=== PATIENT | male | born 1940 | race Caucasian/White ===

== ENCOUNTER → 2019-11-01 09:14 | Outpatient (CLI) | payer MEDICARE, SELFPAY ==
--- NOTE | 2019-11-01 09:18 | DI.RAD.S_ITS ---
PROCEDURE: XR LUMBAR SPINE MIN 4V INDICATIONS: Chronic progressive low back pain TECHNIQUE: 4 total views of the lumbar spine were acquired, including bilateral oblique views. COMPARISON: [facility], , L-SPINE WITHOUT CONTRAST, 11/16/2015, 6:53. FINDINGS: Bones: 5 nonrib-bearing vertebrae are present. No vertebral body compression fractures. No suspicious bony lesions. There is minimal anterolisthesis seen at L4-L5 level. Moderate disc space narrowing is seen at L2-L3, L3-L4, L4-L5, and L5-S1. Lower lumbar spine facet arthropathy is seen. Right hip arthroplasty hardware is partially seen. Soft tissues: Overlying bowel gas pattern is normal. No suspicious soft tissue calcifications. Atherosclerotic calcification is noted. Apparent prostate seed implants can be seen on one image. Oblique images: No pars defects. IMPRESSION: Degenerative changes are seen, which have progressed compared to 2016. Dictated by: Ervin Mitchell M.D. on 11/01/2019 at 8:59 Approved by: Ervin Mitchell M.D. on 11/01/2019 at 9:02
== END ==
PROVIDERS: PCP Family Medicine; Referring Provider Physical Medicine & Rehabilitation; Visit Provider Physical Medicine & Rehabilitation
DX: M54.41 Lumbago with sciatica, right side (principal); M54.42 Lumbago with sciatica, left side; M47.817 Spondylosis without myelopathy or radiculopathy, lumbosacral region; M48.061 Spinal stenosis, lumbar region without neurogenic claudication; M48.07 Spinal stenosis, lumbosacral region; G89.29 Other chronic pain
CPT/HCPCS: 72110

== ENCOUNTER → 2019-11-19 09:34 | Outpatient (CLI) | payer MEDICARE, SELFPAY ==
--- NOTE | 2019-11-19 09:39 | DI.MRI.S_ITS ---
PROCEDURE: MR LUMBAR SPINE WO CON INDICATIONS: Facet arthropathy TECHNIQUE: Noncontrast sagittal T1 spin echo and T2 fast echo, sagittal STIR, axial T1 and T2 fast spin echo through the lumbar spine. In cases with scoliosis, additional coronal T2 fast spin echo may be performed. COMPARISON: [facility], MR, L-SPINE WITHOUT CONTRAST, 11/16/2015, 6:53. FINDINGS: Image quality: Excellent. Alignment and Curvature: There is normal bony alignment. Bone Marrow: Marrow is of normal overall signal. No acute vertebral body compression fractures. Spinal Cord: Conus medullaris terminates at the L1 level. Visualized cord demonstrates normal signal and size. Paraspinous Soft Tissues: No paravertebral masses. T12-L1: No canal stenosis or foraminal stenosis. L1-L2: Mild interval progression. Facet and ligament hypertrophy. Mild canal stenosis. Mild bilateral foraminal stenosis. L2-L3: Interval increase in disc space loss. Diffuse moderate disc bulge. Facet and ligament hypertrophy. Progression of canal stenosis, moderate to severe. Moderate right foraminal narrowing with mild flattening deformity on the exiting right L2 nerve root. Mild to moderate left foraminal narrowing. L3-L4: Multifactorial canal stenosis is severe, secondary to disc bulge and facet and ligament hypertrophy. Disc bulges no longer eccentric to the left. Moderate right foraminal narrowing with mild flattening deformity on the exiting right L3 nerve root. Mild to moderate left foraminal narrowing. L4-L5: Progression of multifactorial severe canal stenosis secondary to diffuse disc bulge and exuberant facet and ligament hypertrophy. Mild to moderate bilateral foraminal narrowing. L5-S1: Stable findings. Disc bulge. Facet and ligament hypertrophy. Mild canal stenosis. Moderate bilateral foraminal stenosis with mild flattening deformity on the exiting bilateral L5 nerve roots. IMPRESSION: 1. Interval progression of multilevel canal stenosis, mild at L1-L2, moderate to severe L2-L3, severe at L3-L4 and L4-L5, and mild at L5-S1. 2. Multilevel foraminal narrowing as described above. 3. Multilevel facet arthropathy. Dictated by: Manpreet Garrido M.D. on 11/21/2019 at 8:53 Approved by: Manpreet Garrido M.D. on 11/21/2019 at 9:01
== END ==
PROVIDERS: PCP Family Medicine; Referring Provider Physical Medicine & Rehabilitation; Visit Provider Physical Medicine & Rehabilitation
DX: M47.816 Spondylosis without myelopathy or radiculopathy, lumbar region (principal); M48.061 Spinal stenosis, lumbar region without neurogenic claudication; M48.07 Spinal stenosis, lumbosacral region
CPT/HCPCS: 72148

== ENCOUNTER → 2020-10-22 12:36 | Outpatient (CLI) | payer MEDICARE, SELFPAY ==
[2020-10-22 13:53] LABS: INR 1.7 (0.9-1.3); Prothrombin Time 19.2 SECONDS (10.1-12.7)
[2020-10-22 13:56] LABS: PTT Partial Thromboplastin Tim 36 SECONDS (26.4-36.2)
[2020-10-22 14:58] LABS: Carbon Dioxide 25 mmol/L (22-32); Chloride 105 mmol/L (98-107); HEMOLYSIS < 15 (0-50); Potassium 4.7 mmol/L (3.4-5.1); Sodium 137 mmol/L (137-145)
== END ==
PROVIDERS: PCP Family Medicine; Referring Provider Podiatrist; Visit Provider Podiatrist
DX: Z01.818 Encounter for other preprocedural examination (principal); Z51.81 Encounter for therapeutic drug level monitoring
CPT/HCPCS: 36415; 80051; 85610; 85730; 93005

== ENCOUNTER → 2020-10-24 08:16 | Outpatient (CLI) | payer MEDICARE, SELFPAY ==
[2020-10-24 11:29] LABS: COVID19 -Nasal RAPID Negative (Negative)
== END ==
PROVIDERS: PCP Family Medicine; Visit Provider Physician Assistant
DX: Z01.812 Encounter for preprocedural laboratory examination (principal); Z20.822 Contact with and (suspected) exposure to COVID-19
CPT/HCPCS: 87635; C9803

== ENCOUNTER 2020-10-26 12:12 | Day surgery (SDC) | payer MEDICARE, SELFPAY ==
[2020-10-23 12:05] VITALS: BMI 29.2
[2020-10-26] VITALS (7 sets, daily range): BP systolic 115–161; BP diastolic 69–107; PULSE 62–95; RESP 12–18; TEMP 36.1–36.9; O2SAT 96–99; BMI 29.2
[2020-10-26] MEDS: LACTATED RINGERS 1,000 ML 100 ML IV (12:57)
--- NOTE | 2020-10-26 14:14 | PM.PREOP ---
Pre-operative Note COVID-19 COVID-19 status: Negative Result date/Date tested (Pos, Neg/Pending): 10/24/20 Interval Note History & Physical reviewed/Exam performed by Physician: Yes Changes to H&P: No
--- NOTE | 2020-10-26 14:14 | PM.OP.1 ---
Operative Date/Time/Diagnoses Date of procedure: 10/26/20 Time of procedure: 14:14 Pre-op diagnosis: Right foot non-healing wound Post-op diagnosis: same Procedure & Clinicians Procedure: Right fifth toe amputation Same procedure as scheduled: Yes Indications: Ongoing wound to the 4th interspace of the right foot mostly into the 5th toe. Conservative measures have failed to alleviate and heal this wound and he wished to have surgical intervention at this time. We spoke of the risks, potential complications, as well as expected outcomes. Consent was signed, no contraindications to the procedure at this time. Surgeon: Brynn Connors Click Yes if Unassisted: Yes Anesthesia Type: General Operative Notes Closure Type: primary Specimen(s): none sent Estimated Blood Loss (mL): 30 Blood products transfused: none Tourniquet time (min): 14 Procedure in detail: The patient was brought to the operating room and placed on the operating table in the supine position. The tourniquet was placed about the right ankle. Well padded, appropriately aligned. 10 cc of a 1 1 mixture of 0.5% Marcaine plain with 2% lidocaine plain was introduced after cleansing the area to the lateral foot in the area of the 4th and 5th toes. After induction of general anesthesia, the foot and ankle were prepped and draped in the usual aseptic manner. The tourniquet was inflated. After check of anesthesia, a full-thickness circumferential incision was made around the wound in the interspace of the 4th toe to 5th toe. Then an incision including this was made on the medial aspect of the 5th metatarsal phalangeal joint and up along the medial aspect of the 5th toe and then across laterally just proximal to the toenail. The 5th toe proximal intermediate and distal phalanges along with the associated tendons and ligaments components were carefully disassociation with the underlying vascular flap and passed from the field. This allowed the flap to then lay over the wound. The area was irrigated with copious amounts normal sterile saline and the tourniquet was deflated, a prompt hyperemic response was seen to the foot. All bleeders were cauterized as necessary. Revision of the skin flap to allow for appropriate coverage was performed. The flap of showed good vascular is a sargent. Subcutaneous closure was carefully performed using 4-0 Vicryl and skin closure using 3-0 nylon. Care was taken to verify that there were no real significant tense areas along the closure. The area was dressed with a sterile lightly compressive dressing. Complications: none Post-operative Condition: stable Disposition: PACU Plan for aftercare: Following a period of postoperative monitoring, the patient will be discharged to home on written and oral postoperative instructions including keeping the dressing dry and intact, no weightbearing to the foot, no ice to the foot, elevating the foot when seated home. DVT prevention techniques have been reviewed. For the 1st postoperative visit the dressing will be changed and close to the 3rd postoperative week we will likely remove the sutures.
[2020-10-26] MEDS: CEFAZOLIN 1 GM VIAL 2 GM IV (14:39)
--- NOTE | 2020-10-26 14:57 | SUR.OPER ---
Supine on padded OR bed, head on pillow, arms secured on padded arm boards at <90 degrees abduction, legs uncrossed, safety belt at thigh, tape over blanket over left lower leg, gel pad under left heel. Gel bump under right hip and rolled blankets under/against right lateral thigh. Right leg in control of the surgeon.
[2020-10-26] MEDS: LIDOCAINE 2% INJ MDV 20 ML INJ (15:02)
[2020-10-26] MEDS: BUPIVACAINE 0.5% (PF) VIAL 30 ML INJ (15:03)
== END 2020-10-26 16:32 | disposition home or self-care (01) ==
LOC: OR 12:14
PROVIDERS: PCP Family Medicine; Referring Provider Podiatrist; Visit Provider Podiatrist
PROC: (CPT 28820; principal; 2020-10-26 14:15)
DX: S91.301A Unspecified open wound, right foot, initial encounter (principal); M20.41 Other hammer toe(s) (acquired), right foot; M79.671 Pain in right foot; I10 Essential (primary) hypertension; E78.5 Hyperlipidemia, unspecified; M19.90 Unspecified osteoarthritis, unspecified site
CPT/HCPCS: 28820; 85610; J0690; J2704; J3010

== ENCOUNTER → 2021-10-02 09:30 | Outpatient (CLI) | payer MEDICARE, SELFPAY ==
--- NOTE | 2021-10-02 | DI.MRI.S_ITS ---
PROCEDURE: MR ANKLE RT WO CON INDICATIONS: Peroneal tendinitis, right leg TECHNIQUE: Noncontrast sagittal T1 spin echo and T2 fast spin echo with fat saturation, axial proton density fast spin echo and T2 fast spin echo with fat saturation, coronal T1 spin echo and T2 fast spin echo with fat saturation through the ankle/hindfoot. COMPARISON: [facility], CR, XR ANKLE 3+ VIEWS RIGHT, 09/12/2021, 14:14. FINDINGS: Image quality: Excellent. Bones and joints: Minimal fracture of the anterior, plantar surface of the calcaneus (5-9). Adjacent T2 hyperintense/T1 hypointense signal is seen, compatible with contusion. No osteochondral injuries of the talar dome. No pathologic joint effusions. Small focus of subchondral edema in the medial, inferior aspect of the talus. Dorsal calcaneal enthesophyte. Medial structures: The posterior tibialis, flexor digitorum longus, and flexor hallucis longus tendons are intact. Small amount of fluid surrounds the flexor digitorum longus and distal aspect of the flexor hallucis longus, concerning for tenosynovitis. The posterior tibial neurovascular bundle appears normal within the tarsal tunnel, without extrinsic mass effect. The deltoid and spring ligaments appear intact. Lateral structures: The anterior talofibular, calcaneofibular, and posterior talofibular ligaments appear intact. More superiorly, the anterior and posterior tibiofibular ligaments appear intact. The tibiofibular syndesmosis is normal in width at 2 mm or less. Split tear of the peroneal brevis at the level of the calcaneus. Thickening with partial tear of the peroneal longus tendon. The sinus tarsi demonstrates normal fatty signal, without edema, fibrosis, or cyst formation. Visualized sinus tarsi components (cervical ligament, interosseous talocalcaneal ligament, roots of the inferior extensor retinaculum) appear normal. Anterior structures: The tibialis anterior, extensor hallucis longus, and extensor digitorum longus tendons appear intact. The dorsal talonavicular ligament appears intact. Posterior and plantar structures: Achilles tendon is intact. Mild reticulated T2 hyperintense signal within Kager's fat. Medial and lateral bands of the plantar fascia are of normal thickness. No abductor digiti quinti muscle atrophy to suggest Potts neuropathy. IMPRESSION: 1. Minimal fracture of the anterior, plantar surface of the calcaneus. 2. Tenosynovitis of the flexor digitorum longus and flexor hallucis longus. 3. Split tear of the peroneal brevis at the level of the calcaneus. 4. Tendinopathy with partial tear of the peroneal longus tendon. 5. Mild edema within Kager's fat, which is nonspecific. 1. Dictated by: Kwaku Bishop M.D. on 10/02/2021 at 13:00 Approved by: Kwaku Bishop M.D. on 10/02/2021 at 13:12
== END ==
PROVIDERS: PCP Family Medicine; Referring Provider Podiatrist; Visit Provider Podiatrist
DX: M76.71 Peroneal tendinitis, right leg (principal); M65.871 Other synovitis and tenosynovitis, right ankle and foot; S96.811A Strain of other specified muscles and tendons at ankle and foot level, right foot, initial encounter
CPT/HCPCS: 73721

== ENCOUNTER → 2023-02-27 13:32 | Outpatient (CLI) | payer MEDICARE, SELFPAY ==
--- NOTE | 2023-02-27 | DI.ECHO.S_ITS ---
[facility] +---------+ : : [address] : [place] : : : : [id number] : : : : Phone: [phone]+ Echocardiogram Report + + :Name: CHIVO PEREZ Study Date: 02/27/2023 Height: 72 in : :[facility] ReadingLocation: Weight: 175 lb : : Gender: Male BSA: 2.0 m2 : :: 1940 Age: 83 yrs BP: 129/81 mmHg: :Reason For Study: Nonrheumatic Mitral Valve Prolapse : :Ordering Physician: REI, : :WILFREDO Performed By: Parul Kaur : :Referring: WILFREDO MINAYA : + + Interpretation Summary The left ventricle is normal in size. Left ventricular ejection fraction is estimated to be 60 +/- 5%. The right ventricle is normal size. Visually RV systolic function preserved. There is mild to moderate mitral regurgitation. The aortic valve is heavily calcified. There is moderate to severely reduced leaflet mobility. The peak aortic velocity is 3.06 m/sec. The aortic valve mean gradient is 21 mmHg. The calculated aortic valve area is 0.95 cm2. sev ratio: 0.30 There is moderate to severe aortic stenosis. There is mild aortic regurgitation. There is mild to moderate tricuspid regurgitation. The right ventricular systolic pressure is estimated to be at least 30 mmHg based on an estimated right atrial pressure of 8 mm Hg. Mild atherosclerotic plaque(s) in the aortic arch. In parasternal long axis view there is small size, an ill-defined echodensity seen attached to the aortic cusp towards LV outflow tract which is mobile but not visible in other views. Procedure: A two-dimensional transthoracic echocardiogram with color flow and Doppler was performed. The study quality was technically adequate. There is no prior echocardiogram noted for this patient. The patient was in atrial fibrillation with controlled ventricular rate during the exam. The patient had frequent PVCs during the exam. Left Ventricle: The left ventricle is normal in size. Proximal septal thickening is noted. There is no echo evidence for significant left ventricular outflow tract obstruction. There is no thrombus. Left ventricular ejection fraction is estimated to be 60 +/- 5%. There are no focal wall motion abnormalities. Diastolic function could not be accurately assessed due to atrial fibrillation. Right Ventricle: The right ventricle is normal size. Visually RV systolic function preserved. Atria: The left atrium is severely dilated. There is no Doppler evidence for an interatrial shunt. Mitral Valve: The mitral valve leaflets appear mildly thickened, but open well. There is mild to moderate mitral annular calcification. There is no mitral valve stenosis. There is mild to moderate mitral regurgitation. Aortic Valve: The aortic valve is heavily calcified. There is moderate to severely reduced leaflet mobility. There is moderate to severe aortic stenosis. The peak aortic velocity is 3.06 m/sec. The aortic valve mean gradient is 21 mmHg. The calculated aortic valve area is 0.95 cm2. In parasternal long axis view there is small size, an ill-defined echodensity seen attached to the aortic cusp towards LV outflow tract which is mobile but not visible in other views. There is mild aortic regurgitation. Tricuspid Valve: Tricuspid leaflets are thickened. There is no tricuspid stenosis. There is mild to moderate tricuspid regurgitation. The right ventricular systolic pressure is estimated to be at least 30 mmHg based on an estimated right atrial pressure of 8 mm Hg. Pulmonic Valve: The pulmonic valve is not well visualized. There is no pulmonic valvular stenosis. There is mild pulmonic regurgitation. Great Vessels: The aortic root is normal size. The ascending aorta is at the upper limits of normal in size. Mild atherosclerotic plaque(s) in the aortic arch. The pulmonary artery is normal size. The IVC is of normal diameter and collapses less than 50% with a sniff. This suggests a right atrial pressure of 8 mm Hg. Pericardium/ Pleura There is a trivial pericardial effusion noted. MMode/2D Measurements & Calculations LVIDd: 4.3 cm LVOT diam: 2.0 cm LVIDs: 2.5 cm Ao root diam: 3.1 cm FS: 41.9 % asc Aorta Diam: 3.7 cm IVSd: 1.0 cm LVPWd: 0.90 cm LV tolliver. diameter/BSA (cm/m^2): 2.1 LV sys. diameter/BSA (cm/m^2): 1.2 LA A2 area: 25.7 cm2 RA long axis: 5.7 cm LA A4 area: 23.2 cm2 RA area: 18.6 cm2 LA length (vol): 6.4 cm RA vol: 51.2 ml LA vol: 79.0 ml RA : 25.5 ml/m2 LA vol index: 39.2 ml/m2 RVD1 (basal): 3.4 cm LVLs ap4: 6.6 cm LVLd ap2: 6.9 cm LVLs ap2: 6.0 cm Doppler Measurements & Calculations Ao V2 max: 290.2 cm/sec LVOT Max Gallo: 85.3 cm/sec Ao V2 mean: 209.8 cm/sec LV V1 max P.9 mmHg Ao max P.0 mmHg LV V1 VTI: 19.3 cm Ao mean P.6 mmHg FLORENTIN(I,D): 0.95 cm2 Ao V2 VTI: 63.9 cm FLORENTIN(V,D): 0.92 cm2 sev ratio: 0.30 FLORENTIN indexed to BSA (cm^2/m^2): 0.47 TR max gallo: 232.0 cm/sec SV(LVOT): 60.5 ml TR max P.5 mmHg PA pr(Accel): 37.6 mmHg AV VR_phl: 0.29 FLORENTIN(VTI)/BSA_phl: 0.47 Reading Physician:05:08 PM
== END ==
PROVIDERS: PCP Family Medicine; Referring Provider Internal Medicine Cardiovascular Disease; Visit Provider Internal Medicine Cardiovascular Disease
DX: I08.3 Combined rheumatic disorders of mitral, aortic and tricuspid valves (principal); I70.0 Atherosclerosis of aorta
CPT/HCPCS: 93306

== ENCOUNTER → 2023-03-04 08:38 | Outpatient (CLI) | payer MEDICARE, SELFPAY ==
[2023-03-04 09:34] LABS: Add Manual Diff / Slide Review NO; Basophils Absolute Auto 100 /uL (0-100); Basophils Percent Auto 0.9 % (0-2); Eosinophils Absolute Auto 200 /uL (0-450); Eosinophils Percent Auto 1.8 % (2-4); Hematocrit 46.1 % (41-53); Hemoglobin 15.4 g/dL (13.5-17.5); Lymphocytes Absolute Auto 1500 /uL (1100-4500); Lymphocytes Percent Auto 14.6 % (25-40); Mean Corpuscular HGB Conc 33.3 % (30-36); Mean Corpuscular Hemoglobin 29.9 PG (26-34); Mean Corpuscular Volume 89.6 fL (80-100); Monocytes Absolute Auto 800 /uL (0-900); Monocytes Percent Auto 7.8 % (3-14); Neutrophils Absolute Auto 7600 /uL (1500-7000); Neutrophils Percent Auto 74.9 % (50-75); Platelet Count 196 X10^3/uL (150-400); Red Blood Cell Count 5.14 X10^6/uL (4.5-5.9); Red Cell Distribution Width 13.8 % (11.6-14.8); White Blood Cell Count 10.2 X10^3/uL (4.5-11.0)
[2023-03-04 10:08] LABS: C-Reactive Protein Quant < 0.5 mg/dL (<1.0)
[2023-03-04 10:28] LABS: Erythrocyte Sedimentation Rate 1 MM/HR (0-15)
== END ==
PROVIDERS: PCP Physician Assistant; Referring Provider Internal Medicine Cardiovascular Disease; Visit Provider Internal Medicine Cardiovascular Disease
DX: I35.8 Other nonrheumatic aortic valve disorders (principal)
CPT/HCPCS: 36415; 85025; 85651; 86140; 87040